=== PATIENT | female | born 1975 | race Caucasian/White ===

== ENCOUNTER 2017-12-06 19:16 | Emergency (ER) | payer BC, OTHER ==
[2017-12-06 20:56] LABS: HEMATOCRIT 38.3 % (36.0-47.0); HEMOGLOBIN 12.7 g/dl (12.0-16.0); MEAN CORPUSCULAR HEMOGLOBIN 30.2 pg (27.0-33.0); MEAN CORPUSCULAR HGB CONC 33.2 g/dl (32.0-36.5); PLATELET COUNT, AUTOMATED 322 10^3/uL (150-450); RED BLOOD COUNT 4.21 10^6/uL (4.00-5.40); RED CELL DISTRIBUTION WIDTH 13.8 % (11.5-14.5); WHITE BLOOD COUNT 12.5 10^3/uL (4.0-10.0)
[2017-12-06 21:05] LABS: KETONE, URINE AUTO RFX NEGATIVE (NEGATIVE); NITRITE, URINE AUTO RFX NEGATIVE (NEGATIVE); RBC, URINE AUTO RFX 12 /HPF (0-3); SPECIFIC GRAVITY UR AUTO RFX 1.006 (1.002-1.035); SQUAM EPITHELIAL CELL UR AURFX 6 /HPF (0-6)
[2017-12-06 21:17] LABS: HCG, SERUM QUANTITATIVE 15079 MIU/ML
[2017-12-06 21:41] LABS: LEUKOCYTE ESTERASE UR AUTO RFX 3+ (NEGATIVE); WBC, URINE AUTO RFX 46 /HPF (0-3)
[2017-12-06] MEDS: NITROFURANTOIN (MACROBID) 100 MG CAP PO (22:15)
== END 2017-12-06 22:52 | disposition home or self-care (01) ==
LOC: M ED 19:16
DX: O20.0 Threatened abortion (principal); O23.41 Unspecified infection of urinary tract in pregnancy, first trimester; R31.9 Hematuria, unspecified; Z3A.01 Less than 8 weeks gestation of pregnancy; O09.291 Supervision of pregnancy with other poor reproductive or obstetric history, first trimester
CPT/HCPCS: 76801

== ENCOUNTER → 2018-09-06 | Outpatient (REF) | payer BC | LOC: M SFHCLERA 10:14 | DX: J02.9 Acute pharyngitis, unspecified (principal) ==

== ENCOUNTER 2023-02-19 18:15 | Emergency (ER) | payer BC, OTHER ==
[~2023-02-19] VITALS: Ht 165.1 cm; Wt 95.8 kg
[~2023-02-19 18:15] MED LIST: IBUP80TA PO; MACR100C43 PO; MAPA500T2 PO; VITAPRTA PO
[2023-02-19] MEDS ORDERED: SUMA100T2 (18:28)
[2023-02-19] MEDS ORDERED: NS 1,000 ML IV ONE (19:20)
[2023-02-19] MEDS ORDERED: METOCLOPRAMIDE INJ 10MG/2ML VIAL IV ONE (19:20)
[2023-02-19] MEDS ORDERED: MAG SULF 1GM/100ML (MAG RUN) 1 GM in IV 1 EA IV ONE (19:20)
[2023-02-19] MEDS ORDERED: KETOROLAC 30 MG/ML 1ML VIAL IV ONE (19:20)
[2023-02-19 22:32] VITALS: BP 128/70
== END 2023-02-19 22:38 | disposition home or self-care (01) ==
LOC: M ED 18:15
DX: R51.9 Headache, unspecified (principal); E11.9 Type 2 diabetes mellitus without complications; Z79.899 Other long term (current) drug therapy
CPT/HCPCS: 96365; 96375; 99283; J1100; J1885; J2765; J3475

== ENCOUNTER → 2024-12-31 | Outpatient (CLI) | payer OTHER ==
[~2024-12-31] MED LIST changes: +SUMA100T2
== END ==
LOC: M WUC 09:07
PROVIDERS: ATTEND Student in an Organized Health Care Education/Training Program
DX: M17.12 Unilateral primary osteoarthritis, left knee (principal)